=== PATIENT | female | born 1985 | race Caucasian/White ===

== ENCOUNTER → 2023-11-17 | Outpatient (CLI) | payer OTHER ==
[~2023-11-17] MED LIST: PROHANCE 279.3MG/ML 15ML VIAL As Ordered ONE
== END ==
LOC: M RAD 14:41
PROVIDERS: ATTEND Obstetrics & Gynecology
DX: R19.00 Intra-abdominal and pelvic swelling, mass and lump, unspecified site (principal); Z98.890 Other specified postprocedural states
CPT/HCPCS: 72197; A9576

== ENCOUNTER 2024-12-10 08:10 | Observation (INO) | payer OTHER ==
[~2024-12-10] VITALS: Ht 154.9 cm; Wt 64.8 kg
[~2024-12-10 08:10] MED LIST changes: +ETON1VAG7 VG; +LORA-753 PO; +MULTTAB20 PO; -PROHANCE 279.3MG/ML 15ML VIAL As Ordered ONE; +RA N1TAB PO; +VITA100093 PO
[2024-12-10] MEDS: LR 1,000 ML IV SCH ×2 (09:09→19:36)
[2024-12-10] MEDS: SCOPOLAMINE 1MG TRANSDERMAL PATCH TOP ONE (09:11)
[2024-12-10] MEDS ORDERED: ROCURONIUM BROMIDE 50MG/5ML VIAL As Ordered ONE (09:30)
[2024-12-10] MEDS ORDERED: dexAMETHasone 4 MG/ML 1 ML VIAL As Ordered ONE (09:30)
[2024-12-10] MEDS ORDERED: LIDOCAINE 2% 100 MG/5 ML SDV (FOR ANES.) As Ordered ONE (09:30)
[2024-12-10] MEDS ORDERED: dexmedeTOMIDine (4 MCG/ML) 200 MCG/50 ML BTL As Ordered ONE (09:30)
[2024-12-10] MEDS ORDERED: ONDANSETRON 4MG 2ML VIAL As Ordered ONE (09:30)
[2024-12-10] MEDS ORDERED: MIDAZOLAM INJ 2 MG/2 ML VIAL As Ordered ONE (09:30)
[2024-12-10] MEDS: ceFAZolin SOD 2 GM IV ONCE IV ONE (11:02)
[2024-12-10] MEDS ORDERED: LACRILUBE (AKWA TEARS) OPHTH OINT 3.5 GM As Ordered ONE (11:05)
[2024-12-10] MEDS: HEPARIN SOD 5000 UNITS/ML 1 ML VIAL/SYRINGE SQ ONE (11:12)
[2024-12-10] MEDS: GENTAMICIN SULF 80 MG/2 ML VIAL As Ordered ONE (11:24)
[2024-12-10] MEDS ORDERED: SUGAMMADEX SODIUM 500 MG/5 ML VIAL As Ordered ONE (11:45)
[2024-12-10] MEDS ORDERED: ACETAMINOPHEN 1000MG/100ML IV BAG As Ordered ONE (11:49)
[2024-12-10] MEDS ORDERED: HYDROmorphone HCL 2 MG/ML 1 ML VIAL As Ordered ONE (11:59)
[2024-12-10] MEDS ORDERED: PHENYLephrine 500MCG 5ML (100MCG/ML) SYRINGE As Ordered ONE (13:28)
[2024-12-10] MEDS: LIDOCAINE W/EPINEPHrine 1% 20 ML VIAL As Ordered ONE (13:29)
[2024-12-10] MEDS ORDERED: HYDROMORPHONE HCL 0.5 MG/0.5 ML SYRINGE IV PRN (15:10)
[2024-12-10] MEDS ORDERED: ACETAMINOPHEN 325 MG TAB PO PRN (15:10)
[2024-12-10] MEDS ORDERED: ESMOLOL 100 MG/10 ML VIAL As Ordered ONE (15:13)
[2024-12-10] MEDS: ONDANSETRON 4MG 2ML VIAL IV PRN (15:54)
[2024-12-10 17:00] VITALS: BP 113/74; TEMP 97.3; O2SAT 94
[2024-12-10 17:30] VITALS: BP 111/80; TEMP 97.5; O2SAT 96
[2024-12-10 18:30] VITALS: BP 114/76; TEMP 97.9; O2SAT 95
[2024-12-10 19:30] VITALS: BP 121/80; TEMP 98.6; O2SAT 97
[2024-12-10] MEDS: PERCOCET 5MG/325MG TAB PO PRN (19:32)
[2024-12-10 20:30] VITALS: BP 111/77; O2SAT 95
[2024-12-10 21:30] VITALS: BP 116/78; TEMP 99.1; O2SAT 95
[2024-12-10] MEDS: traMADol 50 MG TAB PO PRN (21:50)
[2024-12-11] MEDS: ceFAZolin SODIUM 2 GM in DEXTROSE 5% (D5W) ADV/MINI-BAG 50 ML IV SCH (00:02)
[2024-12-11 01:30] VITALS: BP 105/71; TEMP 97.3; O2SAT 97
[2024-12-11 05:30] VITALS: BP 108/72; TEMP 97.3; O2SAT 97
[2024-12-11] MEDS ORDERED: HOME MED LIST COMPLETE! XX SCH (07:30)
[2024-12-11 08:00] VITALS: BP 106/72; TEMP 96.9; O2SAT 98
[2024-12-11 12:00] VITALS: BP 122/82; TEMP 97.2; O2SAT 96
[2024-12-11] MEDS ORDERED: PERCOCET PO (13:37)
== END 2024-12-11 16:15 | disposition home or self-care (01) ==
LOC: M SDC 08:10 → M RR INP 08:11 → M MS5PR 16:55
PROVIDERS: ADMIT Plastic Surgery Surgery of the Hand; ATTEND Plastic Surgery Surgery of the Hand
DX: N62 Hypertrophy of breast (principal); E78.5 Hyperlipidemia, unspecified; L20.9 Atopic dermatitis, unspecified; R51.9 Headache, unspecified; Z79.899 Other long term (current) drug therapy
CPT/HCPCS: 19318; 81025; 88305; 96365; 96366; 96375; 96376; J0131; J0665; J0666; J0690; J1100; J1171; J1580; J1805; J2250; J2371; J2405; J2765; J3010

== ENCOUNTER 2025-01-14 00:07 | Observation (INO) | payer OTHER ==
[~2025-01-14] VITALS: Ht 154.9 cm; Wt 63.1 kg
[~2025-01-14 00:07] MED LIST changes: +PERCOCET PO
[2025-01-14 01:29] LABS: BASO # 0.1 10^3/uL (0.0-0.2); BASO % 0.5 % (0.0-1.0); EOS # 0.3 10^3/uL (0.0-0.5); EOS % 2.4 % (0.0-3.0); LYMPH # 2.7 10^3/uL (1.5-5.0); LYMPH % 21.0 % (24.0-44.0); MONO # 0.7 10^3/uL (0.0-0.8); MONO % 5.6 % (2.0-8.0); NEUTROPHILS # 9.0 10^3/uL (1.5-8.5); NEUTROPHILS % 70.3 % (36.0-66.0); PLATELET COUNT, AUTOMATED 361 10^3/uL (150-450)
[2025-01-14 01:35] LABS: ERYTHROCYTE SEDIMENTATION RATE 37 mm/hr (0-20)
[2025-01-14 01:54] LABS: C REACTIVE PROTEIN QUANTITATIV 1.56 MG/DL (<1.0); CALCIUM LEVEL 7.9 MG/DL (8.5-10.1); CARBON DIOXIDE LEVEL 24 MMOL/L (20-31); CHLORIDE LEVEL 107 MMOL/L (98-107); CREATININE FOR GFR 0.68 MG/DL (0.55-1.30); GLOMERULAR FILTRATION RATE > 90.0 (>60); POTASSIUM SERUM 4.0 MMOL/L (3.5-5.1); SODIUM LEVEL 143 MMOL/L (136-145)
[2025-01-14] MEDS ORDERED: VANCOMYCIN HCL 1,250 MG in IV FLUID PLACE HOLDER 1 EA IV ONE (03:25)
[2025-01-14] MEDS ORDERED: ISOVUE-370 76% 100 ML VIAL As Ordered ONE (03:36)
[2025-01-14] MEDS: [UNRECOGNIZED DRUG - OTHER] IV ONE (04:10)
[2025-01-14] MEDS: NS 0.9% IV ONE (04:10)
[2025-01-14] MEDS: PIPERACILLIN/TAZOBACTAM SOD 4.5 GM in DEXTROSE 5% (D5W) ADV/MINI-BAG 50 ML IV ONE (04:12)
[2025-01-14 04:46] LABS: INR 0.89
[2025-01-14] MEDS: ACETAMINOPHEN *IV* 1,000 MG in IV 1 EA IV ONE (05:48)
[2025-01-14] MEDS: diphenhydrAMINE 50 MG/ML VIAL IV ONE (05:49)
[2025-01-14] MEDS: CLINDAMYCIN 900 MG in IV 1 EA IV ONE (06:07)
[2025-01-14] MEDS: VANCOMYCIN HCL 1,250 MG, VIAL MATE ADAPTER 1 EACH in NS 250 ML IV ONE (07:06)
[2025-01-14] MEDS ORDERED: ACETAMINOPHEN 325 MG TAB PO PRN (07:10)
[2025-01-14] MEDS ORDERED: VANCOMYCIN HCL 1,000 MG, VIAL MATE ADAPTER 1 EACH in NS 250 ML IV SCH (07:10)
[2025-01-14] MEDS: LR 1,000 ML IV SCH (08:18)
[2025-01-14 09:00] VITALS: BP 111/65; TEMP 98.4; O2SAT 96
[2025-01-14] MEDS: PIPERACILLIN/TAZOBACTAM SOD 3.375 GM in DEXTROSE 5% (D5W) ADV/MINI-BAG 50 ML IV SCH (10:40)
[2025-01-14 12:00] VITALS: TEMP 97.7; O2SAT 98
[2025-01-14] MEDS ORDERED: GNPTAB36 PO (13:15)
[2025-01-14] MEDS ORDERED: HOME MED LIST COMPLETE! XX SCH (13:15)
[2025-01-14 14:00] VITALS: BP 109/76; TEMP 98.9
[2025-01-14] MEDS: MUPIROCIN 2% OINT 22 GM TUBE TOP SCH (14:17)
[2025-01-14] MEDS: VANCOMYCIN HCL 750 MG, VIAL MATE ADAPTER 1 EACH in NS 250 ML IV SCH (14:17)
[2025-01-14] MEDS: traMADol 50 MG TAB PO PRN (15:52)
[2025-01-14] MEDS: ONDANSETRON 4MG 2ML VIAL IV PRN (19:44)
[2025-01-14] MEDS ORDERED: KETOROLAC 30 MG/ML 1 ML VIAL IV ONE (23:40)
[2025-01-14] MEDS: KETOROLAC 30 MG/ML 1 ML VIAL IV ONE (23:55)
[2025-01-15] VITALS (8 sets, daily range): BP systolic 101–122; BP diastolic 65–79; TEMP 97.5–98.7; O2SAT 95–99
[2025-01-15 07:37] LABS: PLATELET COUNT, AUTOMATED 326 10^3/uL (150-450)
[2025-01-15 08:15] LABS: CALCIUM LEVEL 7.7 MG/DL (8.5-10.1); CARBON DIOXIDE LEVEL 23 MMOL/L (20-31); CHLORIDE LEVEL 108 MMOL/L (98-107); CREATININE FOR GFR 0.67 MG/DL (0.55-1.30); GLOMERULAR FILTRATION RATE > 90.0 (>60); POTASSIUM SERUM 3.6 MMOL/L (3.5-5.1); SODIUM LEVEL 142 MMOL/L (136-145)
[2025-01-15] MEDS: KETOROLAC 30 MG/ML 1 ML VIAL IV SCH (09:00)
[2025-01-15] MEDS: LR 1,000 ML IV SCH (13:55)
[2025-01-15] MEDS ORDERED: LIDOCAINE 2% 100 MG/5 ML SDV (FOR ANES.) As Ordered ONE (16:23)
[2025-01-15] MEDS ORDERED: MIDAZOLAM INJ 2 MG/2 ML VIAL As Ordered ONE (16:24)
[2025-01-15] MEDS: SCOPOLAMINE 1MG TRANSDERMAL PATCH As Ordered ONE (16:34)
[2025-01-15] MEDS: SCOPOLAMINE 1MG TRANSDERMAL PATCH TOP ONE (16:38)
[2025-01-15] MEDS ORDERED: dexAMETHasone 4 MG/ML 1 ML VIAL As Ordered ONE (16:53)
[2025-01-15] MEDS ORDERED: ROCURONIUM BROMIDE 50MG/5ML VIAL As Ordered ONE (16:53)
[2025-01-15] MEDS ORDERED: ONDANSETRON 4MG 2ML VIAL As Ordered ONE (16:53)
[2025-01-15] MEDS: GENTAMICIN SULF 80 MG/2 ML VIAL As Ordered ONE (16:55)
[2025-01-15] MEDS ORDERED: SUGAMMADEX SODIUM 200 MG/2 ML VIAL As Ordered ONE (16:59)
[2025-01-15] MEDS ORDERED: ONDANSETRON 4MG 2ML VIAL IV PRN (17:05)
[2025-01-15] MEDS ORDERED: HYDROMORPHONE HCL 0.5 MG/0.5 ML SYRINGE IV PRN (17:05)
[2025-01-16 00:39] VITALS: BP 115/72; TEMP 98.5; O2SAT 96
[2025-01-16 07:22] VITALS: BP 103/70; TEMP 98; O2SAT 95
[2025-01-16 08:00] VITALS: BP 126/76; TEMP 98.3; O2SAT 99
[2025-01-16 09:20] LABS: PLATELET COUNT, AUTOMATED 381 10^3/uL (150-450)
[2025-01-16 09:55] LABS: CALCIUM LEVEL 8.1 MG/DL (8.5-10.1); CARBON DIOXIDE LEVEL 23 MMOL/L (20-31); CHLORIDE LEVEL 109 MMOL/L (98-107); CREATININE FOR GFR 0.84 MG/DL (0.55-1.30); GLOMERULAR FILTRATION RATE > 90.0 (>60); POTASSIUM SERUM 4.1 MMOL/L (3.5-5.1); SODIUM LEVEL 144 MMOL/L (136-145)
[2025-01-16 12:00] VITALS: BP 122/73; TEMP 98.6; O2SAT 97
[2025-01-16 16:00] VITALS: BP 110/76; TEMP 99; O2SAT 96
[2025-01-16 19:30] VITALS: BP 112/80; TEMP 98.7; O2SAT 98
[2025-01-16] MEDS: VANCOMYCIN HCL 1,000 MG, VIAL MATE ADAPTER 1 EACH in NS 250 ML IV SCH (22:29)
[2025-01-17 05:05] VITALS: BP 102/69; TEMP 97.7; O2SAT 97
[2025-01-17] MEDS ORDERED: DOXYCYCLINE HYCLATE 100 MG TABLET PO SCH (09:00)
[2025-01-17] MEDS ORDERED: AUGMENTIN 500 MG TAB PO SCH (09:00)
[2025-01-17 09:38] LABS: PLATELET COUNT, AUTOMATED 393 10^3/uL (150-450)
[2025-01-17] MEDS ORDERED: TRIMETHOPRIM/SULFAMETH 80/400 MG TAB PO SCH (10:35)
[2025-01-17] MEDS ORDERED: AMOX500T2 PO (11:57)
[2025-01-17] MEDS ORDERED: DOXY100T PO (11:57)
== END 2025-01-17 12:47 | disposition home health service (06) ==
LOC: M ED 00:07 → M MS4PR 07:07 → M ED 09:10 → M MS5PR 13:50
PROVIDERS: ADMIT Plastic Surgery Surgery of the Hand; ATTEND Plastic Surgery Surgery of the Hand
DX: N61.1 Abscess of the breast and nipple (principal); L03.313 Cellulitis of chest wall; B95.61 Methicillin susceptible Staphylococcus aureus infection as the cause of diseases classified elsewhere
CPT/HCPCS: 19020; 36415; 71045; 71260; 76642; 80048; 80202; 83605; 84702; 85025; 85027; 85610; 85652; 85730; 86140; 87040; 87070; 87075; 87077; 87186; 87205; 87641; 96361; 96365; 96366; 96367; 96375; 99285; J0131; J0665; J0666; J0737; J1100; J1200; J1580; J1885; J2250; J2405; J2543; J2765; J3010; J3373; J3374; Q9967